=== PATIENT | female | born 2000 | race African-American/Black ===

== ENCOUNTER 2024-08-02 19:03 | Inpatient (IN) ==
[2024-08-02] MEDS ORDERED: ACETAMINOPHEN 325 MG TAB PO PRN ×2 (21:22→23:41)
[2024-08-02] MEDS ORDERED: CALCIUM CARBONATE 500 MG CHEWABLE TAB PO PRN ×2 (21:22→23:41)
[2024-08-02] MEDS: LACTATED RINGER'S 1,000 ML IV ONE (21:35)
[2024-08-02] MEDS: BUTORPHANOL TARTRATE 1 MG/ML VIAL IV ONE (21:39)
[2024-08-02] MEDS ORDERED: LIDOCAINE 1% LOCAL 20 ML VIAL INFIL PRN (23:41)
[2024-08-02] MEDS ORDERED: OXYTOCIN 30 UNITS/NSS 30 UNITS/500 ML BAG IV PRN (23:43)
[2024-08-02] MEDS: LACTATED RINGER'S 1,000 ML IV PRN (23:47)
--- NOTE | 2024-08-02 23:49 | Obstetrical Progress Note ---
Date of Service August 02, 2024 Assessment & Plan (1) Normal labor: Plan: IUP at 39 2/7 weeks in early labor requesting epidural analgesia will AROM when comfortable-pitocin for augmentation if necessary anticipate vaginal Subjective Patient is a female EDC [birth year] who presents with onset of contractions earlier today. no SPROM. she slowly made progress to 3-4 cm/90 after getting IV bolus and IV stadol. She is a late transfer of care. GBS -negative. Review of Systems Review of Systems: All systems reviewed & are unremarkable except as noted in HPI & below Physical Exam Constitutional: WD/WN, vitals as above Psychiatric: A+Ox3, euthymic affect Genitourinary: OB Exam Abdomen: + vertex and + regular contractions Manual OB Exam: + cervical dilation 3 cm (3-4), + cervical effacement 90% and + station -2 OB Exam Monitor Tracing: + external FHT monitor used, + external uterine monitor used, + category I and + normal FHT variability Results & Data Vital Signs (Past 12 Hours) Vital Signs Temp Pulse Resp BP 08/02/24 19:40 57 L 126/86 08/02/24 19:28 74 141/97 H 08/02/24 19:24 97.7 F 20 08/02/24 19:22 57 L 142/93 H PG Care Time/CCT Total # of Minutes Spent Total Time Spent with Patient: Total time spent is greater than 50% in coordination of care (as documented) at patient's floor/unit and/or counseling patient: Coding Level of Care Code 13065 SUB INP/OBS CARE 25MIN Diagnoses Normal labor O80; Z37.9
[2024-08-03 00:40] LABS: Hematocrit (blood only) 38.1 % (37.0-47.0); Hemoglobin 12.8 g/dl (12.0-16.0); Mean Corpuscular Hemoglobin 28.9 pg (25.0-34.0); Mean Corpuscular Hgb Conc 33.6 g/dL (32.0-36.0); Mean Platelet Volume 9.9 fL (9.4-12.4); Platelet Count 239 K/uL (130-400); RDW Standard Deviation 43.4 fL (36.4-46.3); Red Blood Count 4.43 M/uL (4.20-5.40); White Blood Count 9.82 K/ul (4.8-10.8)
[2024-08-03] MEDS ORDERED: diphenhydrAMINE 50 MG/ML VIAL IV PRN (01:14)
[2024-08-03] MEDS ORDERED: ePHEDrine sulfate 50 MG/ML AMP IV PRN (01:14)
[2024-08-03] MEDS ORDERED: fentaNYL citrate PF 100 MCG/2 ML VIAL EPI PRN (01:14)
[2024-08-03] MEDS ORDERED: NALOXONE HCL 1 MG in SODIUM CHLORIDE 0.9% 1,000 ML IV PRN (01:14)
[2024-08-03] MEDS ORDERED: NALOXONE HCL 0.4 MG/1 ML VIAL/CARP IV PRN (01:14)
[2024-08-03] MEDS ORDERED: NALBUPHINE HCL INJ 10 MG/ML AMP IV PRN (01:14)
[2024-08-03] MEDS ORDERED: ONDANSETRON INJ 2 MG/ML 2 ML VIAL IV PRN (01:14)
[2024-08-03] MEDS ORDERED: BUPIVACAINE 0.25% PF 30 ML VIAL EPI PRN (01:14)
[2024-08-03] MEDS ORDERED: BUPIVACAINE 0.25% PF 30 ML VIAL EPI STA (01:14)
[2024-08-03] MEDS ORDERED: SODIUM CHLORIDE 0.9% PF INJ 10 ML VIAL EPI PRN (01:14)
[2024-08-03] MEDS ORDERED: ROPIVACAINE 0.5% PF 5 MG/ML 20 ML VIAL EPI PRN (01:14)
[2024-08-03] MEDS ORDERED: LIDOCAINE 2% MPF LOCAL 5 ML VIAL EPI PRN (01:14)
--- NOTE | 2024-08-03 01:14 | Anesthesiology Consultation ---
Date of Service August 03, 2024 Assessment & Plan ASA ASA2 Proposed Anesthesia Anesthesia Type: Labor Epidural Risk / Benefits Reviewed With: PT / POA / Parent / Guardian, Accepts Plan and Informed Consent Obtained History Height/Weight Height: 5 ft 5 in Weight: 72.121 kg Allergies Allergy/AdvReac Type Severity Reaction Status Date / Time sulfamethoxazole Allergy Intermediate Verified 07/30/24 09:11 [From ] trimethoprim [From ] Allergy Intermediate Verified 07/30/24 09:11 Medications Home Medications Medication Instructions Recorded Confirmed Last Taken 21-iron fu-folic acid 1 tab PO DAILY 07/07/24 08/03/24 08/01/24 [ Complete] Active Medications Generic Name Dose Route Start Last Admin Trade Name Freq PRN Reason Stop Dose Admin Lactated Ringer's 1,000 mls @ 125 mls/hr 08/02/24 23:41 08/02/24 23:47 Lr IV 08/03/24 23:40 125 mls/hr .Q8H PRN Administration L&D Protocol Protocol Past Medical History Medical History History of chicken pox Exercise / Class Metabolic Activity II 4-5 Yardwork/Stairs/Walk up hill Past Family History Family History Denies family history of Ovarian cancer Breast cancer Colorectal cancer Past Surgical History Surgical History No history of previous surgery Past Anesthesia History No Hx of Anesthesia Complications and No Family Hx of Anesthesia Complications History of PONV No Hx of PONV and No Hx of Motion Sickness Social History Smoking Status: Never smoker Do You Dip or Chew Tobacco: No Hx Alcohol Use: No Hx Substance Use: No Review of Systems denies fever/cough/ colds/ chest pain/ SOB/ DANIKA denies DANIKA Physical Exam Vital Signs Last Vital Signs Temp 36.5 C 08/03/24 00:01 Pulse 60 08/03/24 01:47 Resp 18 08/03/24 00:01 BP 129/80 08/03/24 01:47 Pulse Ox 100 08/03/24 01:44 ENMT Mouth: no TMJ abnormality and no dentition abnormality Thyromental Distance: > or= 3.5 Finger Breadths Mallampati Class: II Neck neck extension not limited Respiratory normal respiratory effort; no respiratory distress Auscultation: lungs clear to auscultation bilaterally Cardiovascular Rate/Rhythm: regular rate and regular rhythm Neurologic moves all extremities Psychiatric Orientation: alert and oriented x 3 Testing Laboratory Results 08/03/24 00:00
[2024-08-03] MEDS: fentaNYL citrate PF 100 MCG/2 ML VIAL ONE (01:41)
[2024-08-03] MEDS: LIDOCAINE 2%/EPINEPHRINE 1:200,000 20 ML PF ONE (01:42)
[2024-08-03] MEDS: ePHEDrine sulfate 50 MG/ML AMP ONE (01:42)
[2024-08-03] MEDS: SODIUM CHLORIDE 0.9% PF INJ 10 ML VIAL ONE (01:43)
[2024-08-03] MEDS: BUPIVACAINE 0.25% PF 30 ML VIAL ONE (01:43)
[2024-08-03] MEDS: fentANYL 2 MCG/ML BUPIVacaine 0.125%-NSS 100ML BAG ONE (01:43)
[2024-08-03] MEDS: fentANYL 2 MCG/ML BUPIVacaine 0.125%-NSS 100ML BAG EPI PRN (08:57)
--- NOTE | 2024-08-03 09:28 | Labor Progress Brief Note ---
Date of Service August 03, 2024 Subjective comfortable with epidural Assessment & Plan (1) Normal labor: Plan good cx change. fhts categ 1. pt and partner aware i am assuming care. Admission and Anticipated Discharge Date Admission Date: August 02, 2024 Physical Exam Constitutional: WD/WN, vitals as above Genitourinary: Manual OB Exam: + cervical dilation 8 cm, + cervical effacement (ant lip swollen) 100% and + station 0 OB Exam Monitor Tracing: + external FHT monitor used, + external uterine monitor used (q2), + category I and + normal FHT variability Results & Data Vital Signs (Past 12 Hours) Vital Signs Temp Pulse Resp BP Pulse Ox 08/03/24 09:25 54 L 105/59 L 08/03/24 09:19 56 L 100 08/03/24 09:14 57 L 100 08/03/24 09:12 97.9 F 75 16 106/60 08/03/24 09:09 58 L 100 08/03/24 09:07 67 89 L 08/03/24 09:04 62 100 08/03/24 09:01 58 L 94 08/03/24 08:59 56 L 100 08/03/24 08:55 64 115/74 08/03/24 08:54 63 100 08/03/24 08:53 73 92 08/03/24 08:49 59 L 100 08/03/24 08:44 61 100 08/03/24 08:39 56 L 110/71 100 08/03/24 08:34 59 L 100 08/03/24 08:32 75 90 08/03/24 08:29 56 L 100 08/03/24 08:25 57 L 107/63 08/03/24 08:24 57 L 100 08/03/24 08:19 65 100 08/03/24 08:14 60 100 08/03/24 08:10 56 L 110/63 08/03/24 08:09 60 100 08/03/24 08:04 56 L 100 08/03/24 08:02 18 08/03/24 08:02 18 08/03/24 07:59 64 100 08/03/24 07:55 71 114/75 08/03/24 07:54 69 100 08/03/24 07:49 62 100 08/03/24 07:44 65 100 08/03/24 07:41 70 115/71 08/03/24 07:39 58 L 100 08/03/24 07:34 61 100 08/03/24 07:31 59 L 92 08/03/24 07:29 74 100 08/03/24 07:26 68 92 08/03/24 07:25 68 122/65 08/03/24 07:24 71 99 08/03/24 07:19 66 99 08/03/24 07:14 65 100 08/03/24 07:09 97.5 F L 66 16 113/67 100 08/03/24 07:04 70 98 08/03/24 06:59 57 L 100 08/03/24 06:55 67 110/66 08/03/24 06:54 60 99 08/03/24 06:49 64 100 08/03/24 06:44 59 L 100 08/03/24 06:40 67 108/69 08/03/24 06:39 66 98 08/03/24 06:34 59 L 100 08/03/24 06:30 18 08/03/24 06:30 18 08/03/24 06:29 68 99 08/03/24 06:24 67 111/65 98 08/03/24 06:19 66 99 08/03/24 06:14 60 100 08/03/24 06:10 57 L 112/62 08/03/24 06:09 54 L 99 08/03/24 06:04 59 L 100 08/03/24 06:00 16 08/03/24 06:00 16 08/03/24 05:59 62 100 08/03/24 05:55 59 L 109/66 08/03/24 05:54 62 99 08/03/24 05:49 55 L 100 08/03/24 05:44 55 L 99 08/03/24 05:40 53 L 110/68 08/03/24 05:39 55 L 100 08/03/24 05:34 67 100 08/03/24 05:30 16 08/03/24 05:30 98.1 F 16 08/03/24 05:29 58 L 99 08/03/24 05:26 54 L 116/71 08/03/24 05:24 57 L 100 08/03/24 05:19 60 100 08/03/24 05:14 61 100 08/03/24 05:11 62 116/69 08/03/24 05:09 60 100 08/03/24 05:04 65 100 08/03/24 05:00 16 08/03/24 05:00 16 08/03/24 04:59 61 99 08/03/24 04:56 64 109/65 08/03/24 04:54 59 L 99 08/03/24 04:49 60 100 08/03/24 04:44 62 99 08/03/24 04:40 57 L 111/66 08/03/24 04:39 59 L 100 08/03/24 04:34 64 99 08/03/24 04:29 60 99 08/03/24 04:24 58 L 109/66 99 08/03/24 04:19 63 99 08/03/24 04:14 59 L 99 08/03/24 04:09 61 105/66 99 08/03/24 04:04 61 100 08/03/24 03:59 64 98 08/03/24 03:55 55 L 107/64 08/03/24 03:54 56 L 99 08/03/24 03:49 69 99 08/03/24 03:44 68 98 08/03/24 03:40 61 103/63 08/03/24 03:39 64 99 08/03/24 03:34 70 98 08/03/24 03:30 18 08/03/24 03:30 98.1 F 18 08/03/24 03:29 62 99 08/03/24 03:26 57 L 105/64 08/03/24 03:24 54 L 99 08/03/24 03:19 65 98 08/03/24 03:14 58 L 99 08/03/24 03:11 61 103/65 08/03/24 03:09 62 100 08/03/24 03:04 64 100 08/03/24 03:00 16 08/03/24 03:00 16 08/03/24 02:59 72 99 08/03/24 02:55 65 101/61 08/03/24 02:54 61 99 08/03/24 02:49 75 98 08/03/24 02:44 70 98 08/03/24 02:39 75 104/61 98 08/03/24 02:34 63 98 08/03/24 02:30 18 08/03/24 02:30 18 08/03/24 02:29 81 99 08/03/24 02:25 64 102/62 08/03/24 02:24 65 99 08/03/24 02:19 79 98 08/03/24 02:14 68 98 08/03/24 02:09 76 108/59 L 98 08/03/24 02:04 76 99 08/03/24 02:00 18 08/03/24 02:00 18 08/03/24 02:00 16 08/03/24 02:00 16 08/03/24 01:59 67 100 08/03/24 01:54 65 115/69 100 08/03/24 01:52 57 L 118/68 08/03/24 01:51 62 120/72 08/03/24 01:49 64 100 08/03/24 01:48 61 118/68 08/03/24 01:47 60 129/80 08/03/24 01:44 67 118/69 100 08/03/24 01:42 67 123/72 08/03/24 01:40 60 137/77 08/03/24 01:39 65 100 08/03/24 01:38 66 147/82 H 08/03/24 01:34 66 100 08/03/24 01:29 74 100 08/03/24 01:24 64 100 08/03/24 01:19 71 99 08/03/24 00:01 97.7 F 61 18 126/77 Coding Level of Care Code None Diagnoses Normal labor O80; Z37.9
--- NOTE | 2024-08-03 12:01 | Labor Progress Brief Note ---
Date of Service August 03, 2024 Subjective feeling some pressure. no pain. Assessment & Plan (1) Normal labor: Plan ok to begin 2nd stage. fhts categ 1. Admission and Anticipated Discharge Date Admission Date: August 02, 2024 Physical Exam Constitutional: WD/WN, vitals as above Psychiatric: affect seems flat Genitourinary: Manual OB Exam: + cervical dilation 10 cm, + cervical effacement 100% and + station + 2 OB Exam Monitor Tracing: + external FHT monitor used, + external uterine monitor used (q2), + category I and + normal FHT variability Results & Data Vital Signs (Past 12 Hours) Vital Signs Temp Pulse Resp BP Pulse Ox 08/03/24 11:54 77 114/74 100 08/03/24 11:49 68 100 08/03/24 11:44 72 100 08/03/24 11:41 66 115/75 08/03/24 11:39 65 100 08/03/24 11:34 64 100 08/03/24 11:29 61 100 08/03/24 11:25 60 123/74 08/03/24 11:24 64 100 08/03/24 11:19 63 100 08/03/24 11:14 74 100 08/03/24 11:11 61 126/75 08/03/24 11:09 59 L 100 08/03/24 11:04 58 L 100 08/03/24 10:59 56 L 100 08/03/24 10:56 97.5 F L 57 L 16 117/73 08/03/24 10:54 56 L 100 08/03/24 10:49 63 100 08/03/24 10:44 61 100 08/03/24 10:40 63 123/76 08/03/24 10:39 66 100 08/03/24 10:34 65 100 08/03/24 10:29 67 100 08/03/24 10:26 68 122/81 94 08/03/24 10:24 65 100 08/03/24 10:19 77 100 08/03/24 10:14 58 L 100 08/03/24 10:11 59 L 118/73 08/03/24 10:09 62 100 08/03/24 10:04 72 100 08/03/24 09:59 60 100 08/03/24 09:56 53 L 18 101/57 L 08/03/24 09:54 57 L 100 08/03/24 09:49 57 L 100 08/03/24 09:44 60 100 08/03/24 09:40 59 L 103/58 L 08/03/24 09:39 60 100 08/03/24 09:34 56 L 100 08/03/24 09:29 56 L 100 08/03/24 09:25 54 L 105/59 L 08/03/24 09:24 56 L 100 08/03/24 09:19 56 L 100 08/03/24 09:14 57 L 100 08/03/24 09:12 97.9 F 75 16 106/60 08/03/24 09:09 58 L 100 08/03/24 09:07 67 89 L 08/03/24 09:04 62 100 08/03/24 09:01 58 L 94 08/03/24 08:59 56 L 100 08/03/24 08:55 64 115/74 08/03/24 08:54 63 100 08/03/24 08:53 73 92 08/03/24 08:49 59 L 100 08/03/24 08:44 61 100 08/03/24 08:39 56 L 110/71 100 08/03/24 08:34 59 L 100 08/03/24 08:32 75 90 08/03/24 08:29 56 L 100 08/03/24 08:25 57 L 107/63 08/03/24 08:24 57 L 100 08/03/24 08:19 65 100 08/03/24 08:14 60 100 08/03/24 08:10 56 L 110/63 08/03/24 08:09 60 100 08/03/24 08:04 56 L 100 08/03/24 08:02 18 08/03/24 08:02 18 08/03/24 07:59 64 100 08/03/24 07:55 71 114/75 08/03/24 07:54 69 100 08/03/24 07:49 62 100 08/03/24 07:44 65 100 08/03/24 07:41 70 115/71 08/03/24 07:39 58 L 100 08/03/24 07:34 61 100 08/03/24 07:31 59 L 92 08/03/24 07:29 74 100 08/03/24 07:26 68 92 08/03/24 07:25 68 122/65 08/03/24 07:24 71 99 08/03/24 07:19 66 99 08/03/24 07:14 65 100 08/03/24 07:09 97.5 F L 66 16 113/67 100 08/03/24 07:04 70 98 08/03/24 06:59 57 L 100 08/03/24 06:55 67 110/66 08/03/24 06:54 60 99 08/03/24 06:49 64 100 08/03/24 06:44 59 L 100 08/03/24 06:40 67 108/69 08/03/24 06:39 66 98 08/03/24 06:34 59 L 100 08/03/24 06:30 18 08/03/24 06:30 18 08/03/24 06:29 68 99 08/03/24 06:24 67 111/65 98 08/03/24 06:19 66 99 08/03/24 06:14 60 100 08/03/24 06:10 57 L 112/62 08/03/24 06:09 54 L 99 08/03/24 06:04 59 L 100 08/03/24 06:00 16 08/03/24 06:00 16 08/03/24 05:59 62 100 08/03/24 05:55 59 L 109/66 08/03/24 05:54 62 99 08/03/24 05:49 55 L 100 08/03/24 05:44 55 L 99 08/03/24 05:40 53 L 110/68 08/03/24 05:39 55 L 100 08/03/24 05:34 67 100 08/03/24 05:30 16 08/03/24 05:30 98.1 F 16 08/03/24 05:29 58 L 99 08/03/24 05:26 54 L 116/71 08/03/24 05:24 57 L 100 08/03/24 05:19 60 100 08/03/24 05:14 61 100 08/03/24 05:11 62 116/69 08/03/24 05:09 60 100 08/03/24 05:04 65 100 08/03/24 05:00 16 08/03/24 05:00 16 08/03/24 04:59 61 99 08/03/24 04:56 64 109/65 08/03/24 04:54 59 L 99 08/03/24 04:49 60 100 08/03/24 04:44 62 99 08/03/24 04:40 57 L 111/66 08/03/24 04:39 59 L 100 08/03/24 04:34 64 99 08/03/24 04:29 60 99 08/03/24 04:24 58 L 109/66 99 08/03/24 04:19 63 99 08/03/24 04:14 59 L 99 08/03/24 04:09 61 105/66 99 08/03/24 04:04 61 100 08/03/24 03:59 64 98 08/03/24 03:55 55 L 107/64 08/03/24 03:54 56 L 99 08/03/24 03:49 69 99 08/03/24 03:44 68 98 08/03/24 03:40 61 103/63 08/03/24 03:39 64 99 08/03/24 03:34 70 98 08/03/24 03:30 18 08/03/24 03:30 98.1 F 18 08/03/24 03:29 62 99 08/03/24 03:26 57 L 105/64 08/03/24 03:24 54 L 99 08/03/24 03:19 65 98 08/03/24 03:14 58 L 99 08/03/24 03:11 61 103/65 08/03/24 03:09 62 100 08/03/24 03:04 64 100 08/03/24 03:00 16 08/03/24 03:00 16 08/03/24 02:59 72 99 08/03/24 02:55 65 101/61 08/03/24 02:54 61 99 08/03/24 02:49 75 98 08/03/24 02:44 70 98 08/03/24 02:39 75 104/61 98 08/03/24 02:34 63 98 08/03/24 02:30 18 08/03/24 02:30 18 08/03/24 02:29 81 99 08/03/24 02:25 64 102/62 08/03/24 02:24 65 99 08/03/24 02:19 79 98 08/03/24 02:14 68 98 08/03/24 02:09 76 108/59 L 98 08/03/24 02:04 76 99 08/03/24 02:00 18 08/03/24 02:00 18 08/03/24 02:00 16 08/03/24 02:00 16 08/03/24 01:59 67 100 08/03/24 01:54 65 115/69 100 08/03/24 01:52 57 L 118/68 08/03/24 01:51 62 120/72 08/03/24 01:49 64 100 08/03/24 01:48 61 118/68 08/03/24 01:47 60 129/80 08/03/24 01:44 67 118/69 100 08/03/24 01:42 67 123/72 08/03/24 01:40 60 137/77 08/03/24 01:39 65 100 08/03/24 01:38 66 147/82 H 08/03/24 01:34 66 100 08/03/24 01:29 74 100 08/03/24 01:24 64 100 08/03/24 01:19 71 99 08/03/24 00:01 97.7 F 61 18 126/77 Coding Level of Care Code None Diagnoses Normal labor O80; Z37.9
[2024-08-03] MEDS: OXYTOCIN 30 UNITS/NSS 30 UNITS/500 ML BAG IV PRN (13:39)
[2024-08-03] MEDS ORDERED: ACETAMINOPHEN 325 MG TAB PO PRN (13:45)
[2024-08-03] MEDS ORDERED: HYDROCORTISONE ACETATE 25 MG SUPP PR PRN (13:45)
[2024-08-03] MEDS ORDERED: OXYTOCIN 30 UNITS/NSS 30 UNITS/500 ML BAG IV PRN (13:45)
[2024-08-03] MEDS ORDERED: bisacodyL 10 MG SUPP PR PRN (13:45)
--- NOTE | 2024-08-03 13:46 | Delivery Summary ---
Vaginal Delivery Summary Date of Service August 03, 2024 Vaginal Delivery Summary and 2nd Degree LAC The patient dilated to complete and pushed to deliver a viable female infant Apgars 9 and 9 via over 2nd degree perineal laceration. Mouth and nose bulb suctioned at perineum. Shoulders and body delivered with ease. Infant was vigorous and crying at . Cord clamped at 30 seconds of life and infant to maternal abdomen where the cord was then doubly clamped and cut. Placenta delivered spontaneously and intact, three-vessel cord. Hemostasis achieved with dilute pitocin and uterine massage and administration of rectal cytotec 1000mcg. Laceration repaired in layers with 3-0 vicryl and right labial extension also reapproximated. Cervix and sulci intact. QBL 296 cc. Mother and baby stable in recovery. [facility] Vaginal Delivery Charge Delivery Type Details: and 2nd Degree LAC
[2024-08-03] MEDS: miSOPROStoL 200 MCG TAB ONE (13:49)
[2024-08-03] MEDS: miSOPROStoL 200 MCG TAB PR ONE (15:14)
--- NOTE | 2024-08-03 15:17 | Anesthesia Procedure Note ---
Date of Service August 03, 2024 Anesthesia Post Epidural Note Vital Signs Vital Signs: Temp Pulse Resp BP Pulse Ox 36.5 C 94 H 18 135/72 100 08/03/24 12:55 08/03/24 15:00 08/03/24 14:40 08/03/24 15:00 08/03/24 13:34 Notes Mental Status: alert / awake / arousable and participated in evaluation Nausea / Vomiting: adequately controlled Pain: adequately controlled Airway Patency, RR, SpO2: stable & adequate BP & HR: stable & adequate Hydration State: stable & adequate Neuraxial Anesthesia: was administered and sensory block is resolving Anesthetic Complications: no major complications apparent and Pt Satisfied with anesthetic care Epidural: Removed without complications and With tip intact
[2024-08-03] MEDS: IBUPROFEN 600 MG TAB PO PRN (17:14)
[2024-08-03] MEDS: BENZOCAINE 20% SPRY 85 APPLN/85 GM CAN EXT PRN (18:18)
[2024-08-03] MEDS: DOCUSATE SODIUM 100 MG CAP PO SCH (21:02)
[2024-08-04 06:53] LABS: Hematocrit (blood only) 29.6 % (37.0-47.0); Hemoglobin 9.9 g/dl (12.0-16.0); Mean Corpuscular Hemoglobin 28.6 pg (25.0-34.0); Mean Corpuscular Hgb Conc 33.4 g/dL (32.0-36.0); Mean Corpuscular Volume 85.5 fL (80.0-100.0); Mean Platelet Volume 10.2 fL (9.4-12.4); Platelet Count 199 K/uL (130-400); RDW Coefficient of Variation 14.5 % (11.5-14.5); RDW Standard Deviation 44.2 fL (36.4-46.3); Red Blood Count 3.46 M/uL (4.20-5.40); White Blood Count 11.35 K/ul (4.8-10.8)
--- NOTE | 2024-08-04 07:29 | Obstetrical Progress Note ---
Date of Service August 04, 2024 Assessment & Plan (1) care and examination: Plan stable, routine care. breast, rhpos, ri. Day #:: 1 Subjective Ambulation: ambulating normally Voiding: no voiding problems Diet Tolerance:: regular diet Lochia:: Small Feeding Type:: breast feeding doing well. denies complaints. Constitutional: + as per Subjective / HPI Physical Exam Constitutional WD/WN, vitals as above Respiratory normal respiratory effort, lungs clear to auscultation Cardiovascular Rate/Rhythm: regular rate and regular rhythm Gastrointestinal (Abdomen) Inspection/Auscultation: abdomen normal to inspection Percussion/Palpation: abdomen soft Fundus firm 3cm down Musculoskeletal nt calves no edema Neurologic grossly normal Psychiatric A+Ox3, euthymic affect Results & Data Vital Signs (Past 12 Hours) Vital Signs Temp Pulse Pulse Resp BP Pulse Ox O2 Del Method 08/04/24 03:25 97.9 F 67 16 120/80 99 Room Air 08/03/24 23:20 98.2 F 100 H 16 109/73 97 Room Air 08/03/24 21:08 98.4 F 106 H 20 107/68 100 Room Air
[2024-08-04] MEDS: PRENATAL VITAMIN 1 TAB PO SCH (08:32)
[2024-08-04] MEDS: DIPHTHER/TETAN/PERTUS Vaccine (Tdap, Adol/Adult) 0.5mL IM ONE (10:45)
[2024-08-04] MEDS: SODIUM CHLORIDE 0.9% PF INJ 10 ML VIAL EPI STA (10:46)
[2024-08-04] MEDS: fentaNYL citrate PF 100 MCG/2 ML VIAL EPI STA (10:46)
[2024-08-04] MEDS: LIDOCAINE 2%/EPINEPHRINE 1:200,000 20 ML PF EPI STA (10:46)
[2024-08-04] MEDS: bisacodyL 5 MG TABEC PO SCH (19:40)
[2024-08-04 19:54] VITALS: RESP 16
--- NOTE | 2024-08-05 06:06 | Obstetrical Progress Note ---
Date of Service August 05, 2024 Assessment & Plan (1) care and examination: Plan Pt is 24 yo post- day 1 s/p at 39w2d - Encourage ambulation - Pain control with Tylenol and ibuprofen - consult - Discharge today - Follow up in [facility] office in 1 weeks to access breast and 6 weeks for visit Admission and Anticipated Discharge Date Admission Date: August 02, 2024 Supervising Physician Co-Signing Physician Notes Resident Physician Supervision Note: I was present with Dr. Issa during the history and exam. I discussed the case with the resident and agree with the findings and plan as documented in the note. Any exceptions or clarifications are listed here: Doing overall well physically. Patient complains of tenderness of the areaola under th nipple. It does feel a bit thicker in this area than the rest of the areola. There is a blister noted on this nipple. Per nursing, she has done alot of pumping and feeding and not much of direct breast feeding. will have the benefits consultant stop by today. Patient has a very flat affect. She answers questions with mainly just yes/no. She will make a bit of eye contact with you but not much. She did smile for me once. Partner in the room. Nursing notes that she is bonding with the baby. Unsure if this is her normal affect of having issues. Plan to d/c today, but have a one week appt in the office for depression check. [place] Discussed if any concerns to please reach out. firsst baby. Documented By: Kiara Davidson MD, FACOG Subjective Pt is 24 yo post- day 1 s/p at 39w2d Ambulation:In and out of room Voiding:voiding normally Passing gas: yes BM: no Diet tolerance:regular diet Lochia:bloody, no clots Feeding type: breast Current pain level: 3 /10 improved with current meds Resting comfortably this morning in NAD. Noting breast pain and swelling with breast feeding Denies FERNANDEZ, CP, SOB, N/V/D, LE pain/swelling. Review of Systems Review of Systems: As per HPI Physical Exam Constitutional: WD/WN, vitals as above Respiratory: normal respiratory effort, lungs clear to auscultation Cardiovascular: RRR, no murmur, no edema Chest (Breasts): Breast: + skin thickening and + breast tenderness Gastrointestinal (Abdomen): normal bowel sounds, soft, nontender, no he patosplenomegaly Uterine fundus firm and at 1-2 cm below level of umbilicus Neurologic: PERRL, EOMI, accommodation nl, no face palsy, no dysarthria Moving all 4 extremities on command Psychiatric: A+Ox3, euthymic affect Results & Data Vital Signs (Past 12 Hours) Vital Signs Temp Pulse Resp BP O2 Del Method 08/04/24 19:30 36.8 C 89 16 112/72 Room Air Resident Activity Tracking Resident Involvement: Resident Care Provided Care Provided: Adult Hospital Medicine
[2024-08-05 06:32] LABS: Hematocrit (blood only) 28.5 % (37.0-47.0); Hemoglobin 9.7 g/dl (12.0-16.0)
[2024-08-05 07:57] VITALS: BP 111/72; PULSE 76; TEMP 98.2; O2SAT 98
== END 2024-08-05 15:50 | disposition home or self-care (01) | DRG 807 ==
LOC: OPB 19:03 → 4S1 19:07 → 4E2 08-03 17:10